=== PATIENT | female | born 1975 | race Caucasian/White ===

== ENCOUNTER 2023-05-01 11:47 | Emergency (ER) | payer OTHER, SELFPAY | END 2023-05-01 13:16 | disposition home or self-care (01) | LOC: NAV ERS 11:47 | DX: K04.4 Acute apical periodontitis of pulpal origin (principal); K02.9 Dental caries, unspecified; B34.9 Viral infection, unspecified; Z20.822 Contact with and (suspected) exposure to COVID-19; F17.200 Nicotine dependence, unspecified, uncomplicated | CPT/HCPCS: 87635; 87804; 99283 ==